=== PATIENT | female | born 1990 | race Caucasian/White ===

== ENCOUNTER → 2018-04-05 | Outpatient (CLI) | payer BC, MEDICAID ==
[~2018-04-05] MED LIST: FERR325T18 PO; Hydrocodone Bit/Acetaminophen PO; IBP600T1 PO; IBUP-1773 PO; LABE200T7 PO; LEVO112T55; LEVO125T6 PO; LVT.05T PO; PREN1TAB39 PO; THYROID
--- NOTE | 2018-04-05 12:09 | Diagnostic Imaging Report ---
INDICATION: survey. TECHNIQUE: Multiple real-time grayscale images were obtained over the gravid uterus. COMPARISON: None. FINDINGS: There is a single live fetus in a cephalic presentation. heart rate was recorded at 158 beats per minute. Cervical length is 3.7 cm. Placenta is anterior. The amniotic fluid volume is normal. survey shows kidneys, bladder and stomach to be unremarkable. brain is unremarkable. There is a four chambered heart. There is a three-vessel cord with normal insertion. spine is somewhat limited in evaluation due to position. Biometrical measurements are as follows: Biparietal 5.18 cm, age 21 weeks 5 days. Head circumference 19.14 cm, age 21 weeks 3 days. Abdominal circumference 16.87 cm, age 22 weeks 0 days. Femur length 3.80 cm, age 22 weeks 2 days. Sonographic estimate age: 21 weeks 6 days. Sonographic estimated date of delivery: 08/10/18. Estimated Weight: 462 gm (+/- 67 gm). LMP percentile: 71%. heart rate: 158 beats per minute. number: 1 of 1. IMPRESSION: Single live IUP approximately 21 weeks 6 days gestational age with estimated date of confinement sonographically of 08/10/2018. survey is unremarkable apart from a limited spine evaluation. Followup can be obtained. Dictated by: Dictated on workstation # [id number]
== END ==
LOC: RAD 09:55
PROVIDERS: ATTEND Obstetrics & Gynecology
DX: Z36.89 Encounter for other specified antenatal screening (principal); Z3A.21 21 weeks gestation of pregnancy
CPT/HCPCS: 76805

== ENCOUNTER → 2018-06-29 | Outpatient (CLI) | payer BC, MEDICAID ==
--- NOTE | 2018-06-29 11:21 | Diagnostic Imaging Report ---
INDICATION: Gestational diabetes. TECHNIQUE: Multiple real-time grayscale images were obtained over the gravid uterus. COMPARISON: 04/05/2018. FINDINGS: There is a single live fetus in a cephalic presentation. heart rate was recorded at 144 beats per minute. Placenta is anterior. Amniotic fluid index is 9.7 cm. Again noted that spine is not well seen today. Biophysical profile was performed. Overall biophysical profile score is normal at 8 out 8. Biometrical measurements are as follows: Biparietal 8.48 cm, age 34 weeks 2 days. Head circumference 30.12 cm, age 33 weeks 3 days. Abdominal circumference 30.52 cm, age 34 weeks 4 days. Femur length 6.39 cm, age 33 weeks 1 days. Sonographic estimate age: 33 weeks 6 days. Sonographic estimated date of delivery: 08/11/2018. Estimated Weight: 2309 gm (+/- 337 gm). LMP percentile: 53%. heart rate: 144 beats per minute. number: 1 of 1. IMPRESSION: Single live IUP approximately 34 weeks gestational age demonstrating normal interval growth when compared with exam from 04/05/2018. Biophysical profile score is 8 out 8. Survey is limited due to later gestation. spine evaluation remains somewhat limited but no gross abnormality is seen. Dictated by: Dictated on workstation # [id number]
== END ==
LOC: RAD 10:24
PROVIDERS: ATTEND Obstetrics & Gynecology
DX: O24.410 Gestational diabetes mellitus in pregnancy, diet controlled (principal); Z3A.34 34 weeks gestation of pregnancy
CPT/HCPCS: 76805; 76819

== ENCOUNTER → 2018-07-13 | Outpatient (CLI) | payer MEDICAID ==
--- NOTE | 2018-07-13 12:18 | Diagnostic Imaging Report ---
INDICATION: Gestational diabetes. TECHNIQUE: Multiple real-time grayscale images were obtained over the gravid uterus. COMPARISON: 06/29/2018. FINDINGS: Joseph gestation receives a normal 8/8 biophysical profile. Its positioning is cephalic. The normal amniotic fluid index is 10.4. The heart rate is 132 beats per minute. The placenta is anterior with no abruption or previa. Measurements today correlate with an age 36 weeks 1 day reflecting normal interval growth from the initial exam. No abnormality at the anatomical survey was revealed. The spine appeared normal. IMPRESSION: 1. Normal 8/8 biophysical profile. Cephalic-positioned joseph viable IUP revealed normal interval growth. 2. Normal sonographic appearance of the spine. Biometrical measurements are as follows: Biparietal 8.80 cm, age 35 weeks 4 days. Head circumference 32.51 cm, age 36 weeks 6 days. Abdominal circumference 32.64 cm, age 36 weeks 4 days. Femur length 6.85 cm, age 35 weeks 2 days. Sonographic estimate age: 36 weeks 1 days. Sonographic estimated date of delivery: 08/09/18. Estimated Weight: 2856 gm (+/- 417 gm). LMP percentile: 65%. heart rate: 132 beats per minute. number: 1 of 1. Dictated by: Dictated on workstation # [id number]
== END ==
LOC: RAD 10:45
PROVIDERS: ATTEND Obstetrics & Gynecology
DX: O24.410 Gestational diabetes mellitus in pregnancy, diet controlled (principal); Z3A.36 36 weeks gestation of pregnancy
CPT/HCPCS: 76805; 76819

== ENCOUNTER → 2018-08-01 | Outpatient (CLI) | payer MEDICAID ==
--- NOTE | 2018-08-01 12:17 | Diagnostic Imaging Report ---
EXAMINATION: biophysical profile score. INDICATION: Gestational diabetes. FINDINGS: The previous biophysical profile score of 07/13/2018 noted a single live fetus in cephalic presentation. The biophysical profile score was 8/8 and within normal limits. On this exam, the fetus is again visualized. The fetus remains in cephalic presentation. heart motion was noted, and a rate of 146 BPM was recorded. The biophysical profile score is still within normal limits at 8/8. The placenta is anterior, and there is no previa. The amniotic fluid index is 8.3 (normal 8-22 cm). IMPRESSION: There is a single live near-term fetus in cephalic presentation. The biophysical profile score is 8/8 and remains within normal limits. Dictated by: Dictated on workstation # [id number]
== END ==
LOC: RAD 09:44
PROVIDERS: ATTEND Obstetrics & Gynecology
DX: O24.410 Gestational diabetes mellitus in pregnancy, diet controlled (principal); Z3A.37 37 weeks gestation of pregnancy
CPT/HCPCS: 76819

== ENCOUNTER 2018-08-03 07:30 | Inpatient (IN) | payer MEDICAID ==
--- NOTE | 2018-08-03 20:05 | NUR ---
DAVIAN SANTIAGO presented to unit via from ED, accompanied by , FOR INDUCTION. DAVIAN SANTIAGO weighed, gowned, voided, and to bed. EFHM and TOCO applied, VS taken. DAVIAN SANTIAGO oriented to bed controls, call light, TV, heat, and A/C controls.
[2018-08-03] MEDS ORDERED: NS IV 1000 ML 1,000 ML ONE (20:09)
[2018-08-03] MEDS: NS IV 1000 ML 1,000 ML IV SCH (20:15)
[2018-08-03 20:35] VITALS: BP 145/79
[2018-08-03] MEDS ORDERED: MINERAL OIL CONCENTRATE 99.9% 15 ML UDC TOP PRN (20:45)
[2018-08-03] MEDS ORDERED: MISOPROSTOL 100 MCG (CYTOTEC) TAB PO ONE (20:45)
[2018-08-03 20:51] LABS: BASOPHILS % (AUTO) 0 % (0-10); EOSINOPHILS % (AUTO) 1 % (0-10); HEMATOCRIT 31 % (35-52); HEMOGLOBIN 10.5 G/DL (11.5-16.0); LYMPHOCYTES # (AUTO) 0.8 X 10^3 (1.0-4.0); LYMPHOCYTES % (AUTO) 13 % (12-44); MEAN CORPUSCULAR HEMOGLOBIN 27 PG (25-34); MEAN CORPUSCULAR HGB CONC 34 G/DL (32-36); MEAN CORPUSCULAR VOLUME 78 FL (80-99); MEAN PLATELET VOLUME 10.8 FL (7.4-10.4); MONOCYTES # (AUTO) 0.6 X 10^3 (0.0-1.0); MONOCYTES % (AUTO) 10 % (0-12); NEUTROPHILS # (AUTO) 4.7 X 10^3 (1.8-7.8); NEUTROPHILS % (AUTO) 77 % (42-75); PLATELET COUNT 145 10^3/uL (130-400); RED CELL DISTRIBUTION WIDTH 16.6 % (10.0-14.5); WHITE BLOOD COUNT 6.1 10^3/uL (4.3-11.0)
[2018-08-03] MEDS: LACTATED RINGERS 1,000 ML IV SCH (20:57)
[2018-08-03] MEDS ORDERED: ZOLPIDEM 5 MG (AMBIEN) TAB PO ONE (21:00)
[2018-08-03] MEDS ORDERED: CATHETER FLUSH 10 ML SYR IV SCH (22:00)
[2018-08-03 22:30] VITALS: BP 142/76
[2018-08-04] VITALS (33 sets, daily range): BP systolic 124–167; BP diastolic 58–86
[2018-08-04] MEDS: MISOPROSTOL 100 MCG (CYTOTEC) TAB PO SCH ×2 (01:10→05:15)
[2018-08-04 02:37] LABS: BILIRUBIN,URINE NEGATIVE (NEGATIVE); CLARITY,URINE CLEAR; COLOR,URINE YELLOW; GLUCOSE, URINE (UA) NEGATIVE (NEGATIVE); KETONES,URINE NEGATIVE (NEGATIVE); LEUKOCYTE ESTERASE ,URINE 2+ (NEGATIVE); NITRITE,URINE NEGATIVE (NEGATIVE); PH,URINE 6.5 (5-9); PROTEIN,URINE NEGATIVE (NEGATIVE); UROBILINOGEN,URINE NORMAL (NORMAL)
[2018-08-04 02:45] LABS: BACTERIA,URINE FEW /HPF
[2018-08-04] MEDS: NS IV 1000 ML 1,000 ML IV SCH ×2 (04:15→11:44)
[2018-08-04] MEDS ORDERED: METF-397 PO (05:49)
[2018-08-04] MEDS ORDERED: SUFENTA 0.6MCG/ML BUPIVA 0.125 100 ML ONE (10:00)
[2018-08-04] MEDS: LACTATED RINGERS 1,000 ML IV SCH (10:01)
[2018-08-04] MEDS ORDERED: BUPIVACAINE 0.25% 30 ML (SENSORCAINE) VIAL ONE (10:37)
[2018-08-04] MEDS ORDERED: LIDOCAINE PF 2% 5 ML (XYLOCAINE) VIAL ONE (10:37)
[2018-08-04] MEDS ORDERED: fentaNYL INJECTION 100 MCG/2 ML AMP ONE (10:37)
[2018-08-04] MEDS ORDERED: LACTATED RINGERS 1,000 ML IV SCH (11:25)
[2018-08-04] MEDS ORDERED: diphenhydrAMINE 50 MG/ML INJ (BENADRYL) IV PRN (11:30)
[2018-08-04] MEDS ORDERED: NALOXONE 0.4 MG/ML 1 ML (NARCAN) VIAL IV PRN (11:30)
[2018-08-04] MEDS ORDERED: EPIDURAL (SUFENTA 0.6MCG/ML BUPIVA 0.125%) 100 ML BAG EPI PRN (11:30)
[2018-08-04] MEDS ORDERED: ONDANSETRON 4 MG/2 ML (SDV) Z0FRAN IV PRN (11:30)
[2018-08-04] MEDS ORDERED: OXYTOCIN/NORMAL SALINE 500 ML IV ONE ×2 (12:18→15:00)
[2018-08-04] MEDS ORDERED: LIDOCAINE/EPI 2% 1:200,00 (XYLOCAINE) 10 ML VIAL ONE (13:52)
[2018-08-04] MEDS: OXYTOCIN/NORMAL SALINE 500 ML IV SCH ×2 (14:30→15:15)
[2018-08-04] MEDS ORDERED: BENZOCAINE/MENTHOL (DERMOPLAST) 56 ML CAN TP PRN (15:15)
[2018-08-04] MEDS ORDERED: WITCH HAZEL(TUCKS) 40 EA JAR TOP PRN (15:15)
[2018-08-04] MEDS ORDERED: MEASLES,MUMPS,RUBELLA 1 EA INJ SQ ONE (15:15)
[2018-08-04] MEDS ORDERED: TETANUS,DIPTH,PERTUSS P/F (BOOSTRIX) 0.5 ML VIAL IM ONE (15:15)
--- NOTE | 2018-08-04 15:20 | OB Labor & Delivery Record ---
Vag Delivery Note Vag Delivery Note Date of Delivery: 08/04/18 Preoperative Diagnosis: Serenity Harvey is a 27 /Para 4/2 , Gestational Age 38 4/7 weeks, gestational hypertension, Gestational diabetes, A2 (Metformin) Postoperative Diagnosis: Same Surgeon: SMITH ACHARYA Agricultural Agent: Leonora Rincon, MS III Anesthesia: epidural Delivery Type: vaginal Findings: Viable male infant, apgars , weight 8#1oz Lacerations: none Intact placenta with 3 vessel cord. No nuchal cord, body cord or shoulder dystocia Estimated Blood Loss: 150 ml Complications: None Condition: Stable Description of Procedure: The patient is a 27 year old female who presented 25 /Para 4/2 , Gestational Age 38 4/7 weeks, gestational hypertension, Gestational diabetes, A2 (Metformin). She was admitted and informed consent was obtained. Her labor course was remarkable for AROM. She progressed to complete dilatation and began to push. She was then set up for delivery. The infant's head was delivered atraumatically in the OA position. The shoulders and remainder of the 's body were then delivered without difficulty. Upon delivery, the head was held below the level of the perineum and the mouth and nares were bulb suctioned. The cord was doubly clamped and cut and the was handed off to the pediatric staff. An intact placenta with 3-vessel cord delivered via Roby and there was found to be minimal bleeding.~ Vigorous fundal massage was performed and the fundus was found to be firm. IV oxytocin was given. Examination of the vagina and perineum revealed no laceration. Following the delivery, sponge, instrument and needle counts were correct. Mom and baby were both in stable condition in the labor suite. Vitals - Labs Vital Signs - I&O Vital Signs Date Time Temp Pulse Resp B/P (MAP) Pulse Ox O2 Delivery O2 Flow Rate FiO2 08/04/18 11:45 80 144/63 (90) 97 08/04/18 11:30 82 141/58 (85) 97 08/04/18 11:21 85 146/68 (94) 97 08/04/18 11:16 83 145/67 (93) 97 08/04/18 11:14 86 145/60 (88) 98 08/04/18 11:13 84 18 154/71 (98) 97 08/04/18 10:45 86 157/78 (104) 99 08/04/18 10:30 89 146/73 (97) 98 08/04/18 09:30 98.4 08/04/18 08:25 80 20 149/75 (99) Room Air 08/04/18 05:15 97.8 86 18 139/64 (89) Room Air 08/04/18 01:40 97.8 78 16 124/63 (83) Room Air 08/03/18 22:30 97.8 74 18 142/76 (98) Room Air 08/03/18 20:35 98.0 82 18 145/79 (101) Room Air Labs Laboratory Tests 08/03/18 20:43: White Blood Count 6.1, Red Blood Count 3.96L, Hemoglobin 10.5L, Hematocrit 31L, Mean Corpuscular Volume 78L, Mean Corpuscular Hemoglobin 27, Mean Corpuscular Hemoglobin Concent 34, Red Cell Distribution Width 16.6H, Platelet Count 145, Mean Platelet Volume 10.8H, Neutrophils (%) (Auto) 77H, Lymphocytes (%) (Auto) 13, Monocytes (%) (Auto) 10, Eosinophils (%) (Auto) 1, Basophils (%) (Auto) 0, Neutrophils # (Auto) 4.7, Lymphocytes # (Auto) 0.8L, Monocytes # (Auto) 0.6, Eosinophils # (Auto) 0.0, Basophils # (Auto) 0.0, Glucose Level 76 08/03/18 22:40: Urine Color YELLOW, Urine Clarity CLEAR, Urine pH 6.5, Urine Specific [place] 1.010L, Urine Protein NEGATIVE, Urine Glucose (UA) NEGATIVE, Urine Ketones NEGATIVE, Urine Nitrite NEGATIVE, Urine Bilirubin NEGATIVE, Urine Urobilinogen NORMAL, Urine Leukocyte Esterase 2+H, Urine RBC (Auto) NEGATIVE, Urine RBC NONE , Urine WBC 2-5, Urine Squamous Epithelial Cells 5-10, Urine Crystals NONE, Urine Bacteria FEWH, Urine Casts NONE, Urine Mucus NEGATIVE, Urine Culture Indicated NO 08/04/18 07:40: Glucometer 87 08/04/18 09:47: Glucometer 92 SMITH ACHARYA DO Aug 04, 2018 15:20
[2018-08-04] MEDS ORDERED: ACET-77 PO (16:07)
[2018-08-04] MEDS ORDERED: IBUP-844 PO (16:07)
--- NOTE | 2018-08-04 16:08 | Discharge Inst-Women's Service ---
Discharge Inst-Women's Serv Depart Medication/Instructions New, Converted or Re-Newed RX: RX on Chart Final Diagnosis gestational hypertension gestational diabetes A2 Vaginal delivery Epidural Consults/Follow Up Additional Follow Up: Yes (6 weeks with Pranay) Activity Activity: Activity as Tolerated Driving Instructions: You May Drive NO SMOKING: NO SMOKING Nothing Inside Vagina: No Douching, No [place] Diet Discharge Diet: No Restrictions Symptoms to Report to : Swelling Increased, Eyesight Changes, Pain Increased , Fever Over 101 Degrees F, Pain/Pressure in Jaw, Vaginal Bleeding Increase, Cramps in Feet or Legs, Vaginal Discharge Foul For Any Problems or Questions: Contact Your Physician SMITH ACHARYA DO Aug 04, 2018 16:08
[2018-08-04] MEDS: IBUPROFEN 600 MG (MOTRIN) TAB PO SCH ×2 (17:46→23:33)
--- NOTE | 2018-08-04 18:30 | NUR ---
Pericare performed, fresh vpad and underwear applied. Pt assisted to bathroom via ambulation. +void without difficulty. Fresh gown applied. Pt ambulates to PP room 309 accompanied by RN and with all personal belongings. Pt oriented to room and call light. Room service and packet explained. Pt denies needs or concerns at this time.
[2018-08-04] MEDS: ACETAMINOPHEN 500 MG TAB (TYLENOL) PO SCH (20:42)
[2018-08-04] MEDS: DOCUSATE SODIUM 100 MG (COLACE) CAP PO SCH (20:44)
--- NOTE | 2018-08-04 21:00 | NUR ---
pt up ambulating around in room. family at bedside. assessment completed. pt denies any needs at this time.
[2018-08-04] MEDS ORDERED: CATHETER FLUSH 10 ML SYR IV SCH (22:00)
[2018-08-05 01:00] VITALS: BP 143/80
[2018-08-05 05:00] VITALS: BP 133/81
[2018-08-05] MEDS: ACETAMINOPHEN 500 MG TAB (TYLENOL) PO SCH ×2 (05:55→13:32)
[2018-08-05] MEDS: IBUPROFEN 600 MG (MOTRIN) TAB PO SCH ×2 (05:56→13:32)
[2018-08-05 06:16] LABS: BASOPHILS % (AUTO) 0 % (0-10); EOSINOPHILS # (AUTO) 0.1 10^3/uL (0.0-0.3); EOSINOPHILS % (AUTO) 1 % (0-10); HEMATOCRIT 26 % (35-52); HEMOGLOBIN 8.6 G/DL (11.5-16.0); LYMPHOCYTES # (AUTO) 0.8 X 10^3 (1.0-4.0); LYMPHOCYTES % (AUTO) 16 % (12-44); MEAN CORPUSCULAR HGB CONC 33 G/DL (32-36); MEAN CORPUSCULAR VOLUME 80 FL (80-99); MEAN PLATELET VOLUME 10.4 FL (7.4-10.4); MONOCYTES # (AUTO) 0.5 X 10^3 (0.0-1.0); MONOCYTES % (AUTO) 10 % (0-12); NEUTROPHILS # (AUTO) 3.5 X 10^3 (1.8-7.8); NEUTROPHILS % (AUTO) 73 % (42-75); PLATELET COUNT 120 10^3/uL (130-400); RED CELL DISTRIBUTION WIDTH 16.5 % (10.0-14.5); WHITE BLOOD COUNT 4.8 10^3/uL (4.3-11.0)
[2018-08-05 06:18] LABS: MEAN CORPUSCULAR HEMOGLOBIN 26 PG (25-34)
[2018-08-05] MEDS ORDERED: PRENATAL VITAMIN 1 EA TAB PO SCH (07:00)
[2018-08-05] MEDS ORDERED: FERROUS SULF 325 MG (IRON) TAB PO SCH (08:00)
[2018-08-05 09:46] VITALS: BP 148/63
--- NOTE | 2018-08-05 09:46 | NUR ---
AM shift assessment completed and vital signs obtained, see interventions. Scheduled PNV, Colace, and Iron PO given. Plan of care reviewed with patient. Patient verbalizes understanding and denies any current questions or concerns at this time. Shower supplies provided.
[2018-08-05] MEDS: DOCUSATE SODIUM 100 MG (COLACE) CAP PO SCH (09:48)
[2018-08-05 13:32] VITALS: BP 142/71
--- NOTE | 2018-08-05 13:32 | NUR ---
Scheduled Motrin and Tylenol PO given. Fresh water provided. Patient denies any current needs or concerns at this time.
--- NOTE | 2018-08-05 15:22 | Anesthesia-Regional Post-Op ---
Regional Patient Condition Mental Status: Alert, Oriented x3 Circulation: Same as Pre-Op Headache: Absent Sensation: Full Recovery Motor Block: Absent Post Op Complications Complications None Follow Up Care/Instructions Patient Instructions None needed. Anesthesia/Patient Condition Patient is doing well, no complaints, stable vital signs, no apparent adverse anesthesia problems. No complications reported per nursing. WING ALLEN CRNA Aug 05, 2018 15:22
--- NOTE | 2018-08-05 18:00 | NUR ---
Patient discharged at this time and ambulated down to awaiting private vehicle accompanied by this RN. No signs or symptoms of distress noted.
== END 2018-08-05 18:00 | disposition home or self-care (01) | DRG 807 ==
LOC: LDRP 20:09
PROVIDERS: ADMIT Obstetrics & Gynecology; ATTEND Obstetrics & Gynecology
PROC: 10E0XZZ Delivery of Products of Conception, External Approach (ICD-10-PCS; principal; 2018-08-04)
DX: O13.4 Gestational [pregnancy-induced] hypertension without significant proteinuria, complicating childbirth (principal); O24.425 Gestational diabetes mellitus in childbirth, controlled by oral hypoglycemic drugs; Z79.84 Long term (current) use of oral hypoglycemic drugs; Z37.0 Single live birth; Z3A.38 38 weeks gestation of pregnancy
CPT/HCPCS: 36415; 81000; 82947; 82962; 85025; 86850; 86900; 86901; 87088

== ENCOUNTER 2021-07-21 13:12 | Outpatient (RCR) | payer MEDICAID ==
[2021-07-14] MEDS: FERRIC CARBOXYMALTOSE INJ 750 MG in NS (IVPB) 250 ML IV SCH (13:30)
[2021-07-14 13:48] VITALS: BP 142/82
[~2021-07-21] VITALS: Ht 172 cm; Wt 110.0 kg
[~2021-07-21 13:12] MED LIST changes: +ACET-78 PO; +IBUP-844 PO; +METF-397 PO
[2021-07-21] MEDS: FERRIC CARBOXYMALTOSE INJ 750 MG in NS (IVPB) 250 ML IV SCH (13:49)
[2021-07-21 14:12] VITALS: BP 144/69
== END 2021-08-10 | disposition home or self-care (01) ==
LOC: SDC 13:12
PROVIDERS: ATTEND Obstetrics & Gynecology
DX: D50.9 Iron deficiency anemia, unspecified (principal)
CPT/HCPCS: 96365

== ENCOUNTER → 2021-09-11 | Outpatient (CLI) | payer MEDICAID ==
--- NOTE | 2021-09-11 16:57 | Diagnostic Imaging Report ---
INDICATION: survey. TECHNIQUE: Multiple real-time grayscale images were obtained over the gravid uterus. COMPARISON: None FINDINGS: There is a single live fetus in a variable presentation. heart rate was recorded at 146 BPM. Placenta is anterior. Amniotic fluid volume is normal. Cervical length is 6.3 cm. kidneys and bladder are unremarkable. There is a three-vessel cord with normal insertion. spine is unremarkable. The stomach, brain, and heart anatomy is limited due to position and movement. Biometrical measurements are as follows: Biparietal 4.42 cm, age 19 weeks 3 days. Head circumference 16.81 cm, age 19 weeks 4 days. Abdominal circumference 16.26 cm, age 21 weeks 3 days. Femur length 3.74 cm, age 22 weeks 0 days. Sonographic estimate age: 20 weeks 5 days. Sonographic estimated date of delivery: 01/24/2022. Estimated Weight: 414 gm (+/- 61 gm). LMP percentile: >98%. heart rate: 146 beats per minute. number: 1 of 1. IMPRESSION: Single live IUP of 20 weeks 5 days gestational age. Estimated date of confinement sonographically is 01/24/2022. survey is somewhat limited due to position. No gross abnormality is seen. Dictated by: Dictated on workstation # [id number]
== END ==
LOC: RAD 12:00
PROVIDERS: ATTEND Obstetrics & Gynecology
DX: Z36.89 Encounter for other specified antenatal screening (principal); Z3A.20 20 weeks gestation of pregnancy
CPT/HCPCS: 76805

== ENCOUNTER → 2021-09-29 | Outpatient (CLI) | payer MEDICAID ==
[2021-09-29 15:49] LABS: BASOPHILS % (AUTO) 0 % (0-10); EOSINOPHILS # (AUTO) 0.1 10^3/uL (0.0-0.3); EOSINOPHILS % (AUTO) 1 % (0-10); HEMATOCRIT 32 % (35-52); LYMPHOCYTES # (AUTO) 0.9 X 10^3 (1.0-4.0); LYMPHOCYTES % (AUTO) 15 % (12-44); MEAN CORPUSCULAR HEMOGLOBIN 28 pg (25-34); MEAN CORPUSCULAR HGB CONC 34 g/dL (32-36); MEAN CORPUSCULAR VOLUME 81 fL (80-99); MEAN PLATELET VOLUME 10.2 fL (9.0-12.2); MONOCYTES # (AUTO) 0.3 X 10^3 (0.0-1.0); MONOCYTES % (AUTO) 5 % (0-12); NEUTROPHILS # (AUTO) 4.5 X 10^3 (1.8-7.8); NEUTROPHILS % (AUTO) 78 % (42-75); PLATELET COUNT 142 10^3/uL (130-400); WHITE BLOOD COUNT 5.8 10^3/uL (4.3-11.0)
== END ==
LOC: LABNPT 15:37
PROVIDERS: ATTEND Nurse Practitioner Women's Health
DX: Z34.02 Encounter for supervision of normal first pregnancy, second trimester (principal); Z36.9 Encounter for antenatal screening, unspecified
CPT/HCPCS: 82950; 85025

== ENCOUNTER → 2021-12-10 | Outpatient (CLI) | payer MEDICAID ==
--- NOTE | 2021-12-10 15:58 | Diagnostic Imaging Report ---
INDICATION: Evaluate growth. TECHNIQUE: Multiple real-time grayscale images were obtained over the gravid uterus. COMPARISON: 09/11/2021. FINDINGS: There is a single live fetus in a breech presentation. heart rate was recorded at 161 BPM. Placenta is posterior and fundal. Amniotic fluid volume is normal. Cervical length is 5.7 cm. stomach, brain, and four-chamber heart views were visualized on today's exam. Biometrical measurements are as follows: Biparietal 8.14 cm, age 32 weeks 5 days. Head circumference 31.84 cm, age 35 weeks 6 days. Abdominal circumference 29.17 cm, age 33 weeks 2 days. Femur length 6.00 cm, age 31 weeks 2 days. Sonographic estimate age: 33 weeks 2 days. Sonographic estimated date of delivery: 01/26/2022. Estimated Weight: 2058 gm (+/- 301 gm). LMP percentile: 43%. heart rate: 161 beats per minute. number: 1 of 1. IMPRESSION: Single live IUP of approximately 33 weeks gestational age showing normal interval growth when compared with prior exam. No complicating features are detected. Dictated by: Dictated on workstation # [id number]
== END ==
LOC: RAD 15:15
PROVIDERS: ATTEND Obstetrics & Gynecology
DX: O36.63X0 Maternal care for excessive fetal growth, third trimester, not applicable or unspecified (principal); Z3A.33 33 weeks gestation of pregnancy
CPT/HCPCS: 76805

== ENCOUNTER → 2022-01-20 | Outpatient (CLI) | payer MEDICAID ==
[2022-01-20 12:48] LABS: URINE CREATININE FOR RATIO 24 MG/DL (30-125); URINE PROTEIN FOR RATIO ONLY < 6 MG/DL (6-12)
== END ==
LOC: LABNPT 11:36
PROVIDERS: ATTEND Nurse Practitioner Women's Health
DX: O13.9 Gestational [pregnancy-induced] hypertension without significant proteinuria, unspecified trimester (principal); Z3A.00 Weeks of gestation of pregnancy not specified
CPT/HCPCS: 82570; 84156

== ENCOUNTER 2022-01-27 12:26 | Inpatient (IN) | payer MEDICAID ==
[~2022-01-27] VITALS: Ht 172.7 cm; Wt 130.0 kg
[2022-01-27] VITALS (69 sets, daily range): BP systolic 117–153; BP diastolic 58–86
[2022-01-27] MEDS ORDERED: OXYTOCIN PRE-MIX DRIP 500 ML IV SCH ×2 (12:45→19:30)
[2022-01-27] MEDS ORDERED: MINERAL OIL 30 ML UDC TOP PRN (12:45)
[2022-01-27 13:15] LABS: BASOPHILS % (AUTO) 0 % (0-10); EOSINOPHILS % (AUTO) 1 % (0-10); HEMATOCRIT 32 % (35-52); HEMOGLOBIN 10.9 g/dL (11.5-16.0); LYMPHOCYTES # (AUTO) 0.7 10^3/uL (1.0-4.0); LYMPHOCYTES % (AUTO) 12 % (12-44); MEAN CORPUSCULAR HEMOGLOBIN 27 pg (25-34); MEAN CORPUSCULAR HGB CONC 34 g/dL (32-36); MEAN CORPUSCULAR VOLUME 80 fL (80-99); MEAN PLATELET VOLUME 11.1 fL (9.0-12.2); MONOCYTES # (AUTO) 0.3 10^3/uL (0.0-1.0); MONOCYTES % (AUTO) 7 % (0-12); NEUTROPHILS # (AUTO) 4.2 10^3/uL (1.8-7.8); NEUTROPHILS % (AUTO) 80 % (42-75); PLATELET COUNT 148 10^3/uL (130-400); WHITE BLOOD COUNT 5.3 10^3/uL (4.3-11.0)
[2022-01-27 13:24] LABS: ALBUMIN 3.1 GM/DL (3.2-4.5); POTASSIUM 3.8 MMOL/L (3.6-5.0)
[2022-01-27 13:26] LABS: CALCIUM 8.6 MG/DL (8.5-10.1)
[2022-01-27 13:27] LABS: TOTAL PROTEIN 6.1 GM/DL (6.4-8.2)
[2022-01-27 13:29] LABS: BILIRUBIN,TOTAL 0.5 MG/DL (0.1-1.0)
[2022-01-27 13:31] LABS: CREATININE SERUM 0.59 MG/DL (0.60-1.30)
[2022-01-27] MEDS: D5 LR IV SOLUTION 1,000 ML IV SCH ×2 (13:34→18:45)
[2022-01-27] MEDS ORDERED: LEVO112T55 PO (13:36)
[2022-01-27] MEDS ORDERED: CATHETER FLUSH 10 ML SYR IV SCH ×2 (14:00→22:00)
[2022-01-27] MEDS ORDERED: BENZOCAINE/MENTHOL (DERMOPLAST) 56 ML CAN TP PRN (19:30)
[2022-01-27] MEDS ORDERED: NALOXONE 0.4 MG/ML 1 ML (NARCAN) VIAL IV PRN ×4 (19:30→23:00)
[2022-01-27] MEDS ORDERED: WITCH HAZEL(TUCKS) 40 EA JAR TOP PRN (19:30)
[2022-01-27] MEDS ORDERED: MEASLES,MUMPS,RUBELLA 1 EA INJ SQ ONE (19:30)
[2022-01-27] MEDS ORDERED: TETANUS,DIPTH,PERTUSS P/F (BOOSTRIX) 0.5 ML VIAL IM ONE (19:30)
[2022-01-27] MEDS ORDERED: BUTORPHANOL INJ 2 MG/ML (STADOL) VIAL IV PRN (20:30)
[2022-01-27] MEDS ORDERED: LACTATED RINGERS 1,000 ML IV ONE ×2 (21:56→22:00)
[2022-01-27] MEDS ORDERED: CATHETER FLUSH 10 ML SYR IV PRN (22:00)
[2022-01-27] MEDS ORDERED: fentaNYL 2 mcg/ml BUPIVA 0.125 100 ML IV SCH (22:00)
[2022-01-27] MEDS ORDERED: ONDANSETRON 4 MG/2 ML (SDV) Z0FRAN IV PRN (23:00)
[2022-01-27] MEDS ORDERED: LACTATED RINGERS 1,000 ML IV SCH (23:00)
[2022-01-27] MEDS ORDERED: diphenhydrAMINE 50 MG/ML INJ (BENADRYL) IV PRN (23:00)
[2022-01-27] MEDS ORDERED: fentaNYL 2 mcg/ml BUPIVA 0.125 100 ML EPI SCH (23:00)
[2022-01-27] MEDS ORDERED: METOCLOPRAMIDE INJ 10 MG/2 ML (REGLAN) IV PRN (23:00)
[2022-01-28] VITALS (49 sets, daily range): BP systolic 115–152; BP diastolic 55–78
[2022-01-28] MEDS: D5 LR IV SOLUTION 1,000 ML IV SCH (02:44)
--- NOTE | 2022-01-28 02:46 | HISTORY AND PHYSICAL ---
DATE OF SERVICE: CHIEF COMPLAINT: Elevated blood pressures. HISTORY OF PRESENT ILLNESS: This is a 5, para 4 at 39 weeks and 4 days gestation, who was admitted from the office for gestational hypertension. Denies headache, blurry vision, right upper quadrant pain. Denies contractions, leaking of fluid or vaginal bleeding. Positive movement. No other complaints of. PAST OBSTETRICAL HISTORY: Spontaneous vaginal delivery x4 at term with history of complications of hypertensive disorders in . PAST MEDICAL HISTORY: Hypothyroidism, transient thrombocytopenia, gestational. PAST SURGICAL HISTORY: Appendectomy, cholecystectomy. MEDICATIONS: Levothyroxine 112 mcg p.o. daily and vitamins and iron supplements. FAMILY HISTORY: Briefly reviewed and noncontributory. SOCIAL HISTORY: Denies tobacco, alcohol or drug use. REVIEW OF SYSTEMS: Negative other than per HPI. PHYSICAL EXAMINATION: GENERAL: Alert and oriented x3, in no acute distress, resting comfortably in the bed. HEENT: Normocephalic, atraumatic. CHEST: Nonlabored. ABDOMEN: Gravid, nontender. EXTREMITIES: Nontender. PELVIC: Cervical exam is 3 cm, 60% effaced, -3, vertex confirmed by bedside ____sono_. heart tones are category 1. [place] have contractions following initiation of Pitocin. VITAL SIGNS: Blood pressure ranged from normal to mild with no severe blood pressures with her vital signs were stable. She is afebrile. LABORATORY DATA: CBC and CMP, LDH, uric acid are unremarkable for preeclampsia and UA has negative protein. ASSESSMENT: A 31-year-old G5, P4 at 39 weeks and 4 days gestation with gestational hypertension. PLAN: Admit for induction of labor. Pitocin initiated. AROM performed 3 cm with clear fluid. Job ID: [id number] DocumentID: [id number] Dictated Date: 01/27/2022 20:30:37 Spectrographer Date: 01/28/2022 02:46:20 Dictated By: Olya Sesay MD [facility]
--- NOTE | 2022-01-28 06:03 | OPERATIVE REPORT ---
DATE OF SERVICE: 01/28/2022 PREOPERATIVE DIAGOSIS: G5, P4 at 39 weeks and 5 days gestation with gestational hypertension. DIAGNOSIS: Delivered a female, Apgars 8 and 9. DELIVERY TYPE: Spontaneous vaginal delivery. DELIVERING PHYSICIAN: Olya Sesay MD ANESTHESIA: Epidural. ESTIMATED BLOOD LOSS: 250 mL. COMPLICATIONS: None. CONDITION: Stable. GBS negative. DELIVERY NOTE: The patient was admitted from the clinic with elevated blood pressures in the mild range. Lab evaluation was unremarkable and she was asymptomatic consistent with gestational hypertension. She had an isolated severe blood pressure with pushing otherwise, normal to mild range blood pressures. She was admitted and had Pitocin induction followed by artificial rupture of membranes with ___[place]ook__ at 3 cm revealing clear fluid. She had epidural placed on her request; however, was not adequate and had a replaced and was able to achieve adequate pain control. She progressed to stage II and pushed through a single contraction, delivering a female infant in the REED position. Nose and mouth were suctioned and the was placed on mom's abdomen for delayed cord clamping. A cord segment was obtained and held. Cord blood was drawn and the placenta was expressed. Evaluation of the placenta revealed this to be intact without any visual gross abnormalities. Uterine tone was achieved with Pitocin after delivery of the . Periurethral laceration was repaired with 3-0 chromic suture. Mom and baby tolerated the delivery well. Job ID: [id number] DocumentID: [id number] Dictated Date: 01/28/2022 04:49:19 Ibm Bpm Developer Date: 01/28/2022 06:02:09 Dictated By: Olya Sesay MD [facility]
[2022-01-28] MEDS ORDERED: IBUP-844 PO (07:34)
[2022-01-28] MEDS ORDERED: OXC5T PO (07:34)
[2022-01-28] MEDS: DOCUSATE SODIUM 100 MG (COLACE) CAP PO SCH ×3 (09:00→21:05)
--- NOTE | 2022-01-28 10:30 | Anesthesia-Regional Post-Op ---
Regional Patient Condition Mental Status: Alert, Oriented x3 Circulation: Same as Pre-Op Headache: Absent Sensation: Full Recovery Motor Block: Absent Post Op Complications Complications None Follow Up Care/Instructions Patient Instructions None needed. Anesthesia/Patient Condition Patient is doing well, no complaints, stable vital signs, no apparent adverse anesthesia problems. No complications reported per nursing. MITCHEL SEGURA CRNA Jan 28, 2022 10:30
[2022-01-28] MEDS: FERROUS SULF 325 MG (IRON) TAB PO SCH (10:32)
[2022-01-28] MEDS: PRENATAL VITAMIN 1 EA TAB PO SCH (10:34)
[2022-01-28] MEDS: IBUPROFEN 600 MG (MOTRIN) TAB PO SCH ×3 (10:36→22:00)
[2022-01-28] MEDS: ACETAMINOPHEN 500 MG TAB (TYLENOL) PO SCH ×3 (10:36→21:59)
[2022-01-28] MEDS ORDERED: OXYTOCIN PRE-MIX DRIP 500 ML IV SCH ×2 (11:00→15:45)
[2022-01-28 12:07] LABS: BASOPHILS % (AUTO) 0 % (0-10); EOSINOPHILS % (AUTO) 0 % (0-10); HEMATOCRIT 30 % (35-52); HEMOGLOBIN 10.2 g/dL (11.5-16.0); LYMPHOCYTES # (AUTO) 0.7 10^3/uL (1.0-4.0); LYMPHOCYTES % (AUTO) 9 % (12-44); MEAN CORPUSCULAR HEMOGLOBIN 27 pg (25-34); MEAN CORPUSCULAR HGB CONC 34 g/dL (32-36); MEAN CORPUSCULAR VOLUME 80 fL (80-99); MEAN PLATELET VOLUME 10.8 fL (9.0-12.2); MONOCYTES # (AUTO) 0.6 10^3/uL (0.0-1.0); MONOCYTES % (AUTO) 7 % (0-12); NEUTROPHILS # (AUTO) 6.8 10^3/uL (1.8-7.8); NEUTROPHILS % (AUTO) 83 % (42-75); PLATELET COUNT 141 10^3/uL (130-400); WHITE BLOOD COUNT 8.2 10^3/uL (4.3-11.0)
[2022-01-28 12:19] LABS: PROTHROMBIN TIME PATIENT 13.6 SEC (12.2-14.7)
[2022-01-28 12:26] LABS: ALBUMIN 2.8 GM/DL (3.2-4.5); BILIRUBIN,TOTAL 0.4 MG/DL (0.1-1.0); CALCIUM 8.7 MG/DL (8.5-10.1); CREATININE SERUM 0.58 MG/DL (0.60-1.30); POTASSIUM 4.2 MMOL/L (3.6-5.0); TOTAL PROTEIN 5.5 GM/DL (6.4-8.2)
[2022-01-28] MEDS ORDERED: morphine INJ 4 MG/ML 1 ML (VIAL/SYRINGE) ONE (15:20)
[2022-01-28] MEDS ORDERED: morphine INJ 10 MG/ML 1ML (SYR OR VIAL) IVP STA (15:23)
[2022-01-28] MEDS ORDERED: METHYLERGONOVINE 0.2 MG (MEHTERGINE) TAB PO ONE (15:28)
[2022-01-28] MEDS ORDERED: METHYLERGONOVINE 0.2 MG/ML (METHERGINE) AMP IM NR (15:45)
[2022-01-28] MEDS ORDERED: NS IV 500 ML 500 ML IV SCH (15:45)
[2022-01-28] MEDS ORDERED: LACTATED RINGERS 1,000 ML IV SCH (15:45)
[2022-01-28] MEDS ORDERED: IRON SUCROSE 200 MG/10 ML (VENOFER) VIAL IV SCH (16:00)
[2022-01-28] MEDS ORDERED: CARBOPROST (HEMABATE) 250 MCG/ML AMP IM NR (17:00)
[2022-01-28 18:34] LABS: HEMOGLOBIN 9.4 g/dL (11.5-16.0)
[2022-01-29 00:15] VITALS: BP 115/56
--- NOTE | 2022-01-29 02:43 | CONSULTATION REPORT ---
DATE OF SERVICE: 01/28/2022 PROGRESS NOTE This is a delayed entry from 1600 today. I was called by the RN caring for the patient who reported an increase in vaginal bleeding. Uterus is firm per her report, however, has had two episodes of slightly increased lochia today with clots, totaling 700 mL from delivery until time of evaluation. On evaluation, the patient is resting comfortably in the bed, in no acute distress. Denies pain, but states feels some heaviness when she is ambulating. Voiding without difficulty and feels as emptying her bladder completely with what she reports is quite a bit of urine output. No fevers or chills. On exam, her fundus is well above the umbilicus, unable to massage any clots out, however, this is likely secondary to her habitus. Consent was obtained and she was administered 2 mg of IV morphine and was performed revealing a uterus distended full of clot and was able to evacuate 2 pieces of placental membranes, but no cotyledons were noted. Tone was slow to achieve and she was given another bag of Pitocin. She had one additional bag of Pitocin since delivery with the increase of bleeding noted by the nurse earlier today. Following evacuation of the clots with uterine massage and Pitocin, she was also given oral Methergine as IM was not available and 1000 mcg of Cytotec AR. Blood pressures have been all normal since delivery and had only a few elevated during labor, so Methergine was felt to be an acceptable option. Fibrinogen and INR were normal with a hemoglobin of 10.2 earlier. We will repeat H and H and have 2 units hold. N.p.o. status in case needs surgical management later tonight. Counseled the patient on risks and benefits of above possible procedures and questions were answered to her satisfaction. I will be checking this patient out to Dr. Sharpe overnight. Job ID: [id number] DocumentID: [id number] Dictated Date: 01/28/2022 18:06:53 Remedy Developer Date: 01/29/2022 02:00:29 Dictated By: Olya Sesay MD
[2022-01-29] MEDS: IBUPROFEN 600 MG (MOTRIN) TAB PO SCH ×2 (04:15→10:59)
[2022-01-29] MEDS: ACETAMINOPHEN 500 MG TAB (TYLENOL) PO SCH ×2 (04:16→10:59)
[2022-01-29 04:23] VITALS: BP 127/58
[2022-01-29 09:00] VITALS: BP 131/60
[2022-01-29] MEDS: PRENATAL VITAMIN 1 EA TAB PO SCH (09:07)
[2022-01-29] MEDS: FERROUS SULF 325 MG (IRON) TAB PO SCH (09:07)
[2022-01-29] MEDS: DOCUSATE SODIUM 100 MG (COLACE) CAP PO SCH (09:09)
--- NOTE | 2022-01-29 10:58 | CONSULTATION REPORT ---
DATE OF SERVICE: 01/29/2022 PROGRESS NOTE SUBJECTIVE: The patient states pain is well controlled, tolerating by mouth. Lochia is reduced. States that sensation of something heavy inside has resolved. Denies chest pain, shortness of air. Denies dizziness. No other complaints. OBJECTIVE: VITAL SIGNS: Stable. She is afebrile. GENERAL: Alert and oriented x3, no acute distress, resting comfortably in the bed. CHEST: Nonlabored. ABDOMEN: Appropriately tender following extensive fundal massage yesterday. Fundus is difficult to palpate secondary to habitus, but appears to be firm and below anatomic umbilical location. EXTREMITIES: Nontender. LABORATORY DATA: Hemoglobin last night was 9.4, this morning will be ordered and is pending. IMPRESSION: 1. Status post spontaneous vaginal delivery, day #1 with hemorrhage and acute blood loss anemia. Plan has had adequate IV fluid replacement to maintain volume. Hemoglobin pending this morning. 2. Had initially ordered IV iron; however, the patient reported to the RN following that order that she had hives and swelling following. We will inquire today if she had a reaction to IV iron dextrose or IV iron sucrose the latter of which would have a lower likelihood of side effect and then consider . Definitely, we will continue oral replacement with vitamin C upon dismissal. 3. The patient is hopeful for dismissal today. Reviewed with her the risks of hemorrhage including dizziness, fatigue, lightheadedness and return of hemorrhaging and patient feels that she would have adequate adult support at home for herself and her children and the ability to return to the hospital quickly if anything were to change. We will continue to monitor through today and consider dismissal later this afternoon or evening. Job ID: [id number] DocumentID: [id number] Dictated Date: 01/29/2022 09:10:13 Shared Services Manager Date: 01/29/2022 10:57:35 Dictated By: Olya Sesay MD
[2022-01-29 12:39] LABS: HEMOGLOBIN 8.8 g/dL (11.5-16.0)
[2022-01-29 15:30] VITALS: BP 127/63
[2022-01-29 16:25] VITALS: BP 127/63
== END 2022-01-29 16:25 | disposition home or self-care (01) | DRG 806 ==
LOC: LDRP 12:26
PROVIDERS: ADMIT Obstetrics & Gynecology; ATTEND Obstetrics & Gynecology
PROC: 10E0XZZ Delivery of Products of Conception, External Approach (ICD-10-PCS; principal; 2022-01-28)
PROC: 10907ZC Drainage of Amniotic Fluid, Therapeutic from Products of Conception, Via Natural or Artificial Opening (ICD-10-PCS; 2022-01-28)
PROC: 3E033VJ Introduction of Other Hormone into Peripheral Vein, Percutaneous Approach (ICD-10-PCS; 2022-01-28)
DX: O13.4 Gestational [pregnancy-induced] hypertension without significant proteinuria, complicating childbirth (principal); O99.12 Other diseases of the blood and blood-forming organs and certain disorders involving the immune mechanism complicating childbirth; Z37.0 Single live birth; D62 Acute posthemorrhagic anemia; Z3A.39 39 weeks gestation of pregnancy; O99.284 Endocrine, nutritional and metabolic diseases complicating childbirth; E03.9 Hypothyroidism, unspecified; D69.6 Thrombocytopenia, unspecified; O90.81 Anemia of the puerperium
CPT/HCPCS: 36415; 80053; 83615; 84550; 85014; 85018; 85025; 85384; 85610; 86850; 86900; 86901; 86920

== ENCOUNTER 2022-04-01 05:40 | Outpatient (CLI) | payer MEDICAID ==
[~2022-04-01] VITALS: Ht 172.7 cm; Wt 119.5 kg
[~2022-04-01 05:40] MED LIST changes: +LABE200T10 PO; -LABE200T7 PO; +LEVO112T55 PO; +OXC5T PO
== END 2022-04-01 11:02 | disposition home or self-care (01) ==
LOC: PREOP 05:40
PROVIDERS: ATTEND Obstetrics & Gynecology
DX: Z01.818 Encounter for other preprocedural examination (principal)

== ENCOUNTER 2022-04-05 08:51 | Day surgery (SDC) | payer MEDICAID ==
[2022-04-05] VITALS (11 sets, daily range): BP systolic 111–142; BP diastolic 56–83
[~2022-04-05] VITALS: Ht 172 cm; Wt 119.5 kg
[2022-04-05] MEDS: LACTATED RINGERS 1,000 ML IV PRN ×2 (09:15→12:20)
[2022-04-05 09:47] LABS: BASOPHILS % (AUTO) 0 % (0-10); EOSINOPHILS # (AUTO) 0.1 10^3/uL (0.0-0.3); EOSINOPHILS % (AUTO) 2 % (0-10); HEMATOCRIT 33 % (35-52); HEMOGLOBIN 10.7 g/dL (11.5-16.0); LYMPHOCYTES # (AUTO) 0.7 10^3/uL (1.0-4.0); LYMPHOCYTES % (AUTO) 15 % (12-44); MEAN CORPUSCULAR HEMOGLOBIN 24 pg (25-34); MEAN CORPUSCULAR HGB CONC 32 g/dL (32-36); MEAN CORPUSCULAR VOLUME 74 fL (80-99); MEAN PLATELET VOLUME 10.8 fL (9.0-12.2); MONOCYTES # (AUTO) 0.4 10^3/uL (0.0-1.0); MONOCYTES % (AUTO) 8 % (0-12); NEUTROPHILS # (AUTO) 3.3 10^3/uL (1.8-7.8); NEUTROPHILS % (AUTO) 75 % (42-75); PLATELET COUNT 172 10^3/uL (130-400); WHITE BLOOD COUNT 4.5 10^3/uL (4.3-11.0)
[2022-04-05] MEDS ORDERED: fentaNYL INJ 100 MCG/2 ML AMP ONE (11:02)
[2022-04-05] MEDS ORDERED: MIDAZOLAM 2 MG/2 ML (VERSED) VIAL ONE (11:02)
[2022-04-05] MEDS ORDERED: LIDOCAINE PF 2% 5 ML (XYLOCAINE) VIAL ONE (11:02)
[2022-04-05] MEDS ORDERED: proPOfol 200 MG/20 ML (DIPRIVAN) VIAL IV ONE (11:02)
--- NOTE | 2022-04-05 11:03 | Discharge Inst-Women's Service ---
Discharge Inst-Women's Serv Depart Medication/Instructions New, Converted or Re-Newed RX: Other (may take OTC NSAIDs and tylenol as needed.) Problems Reviewed?: Yes Consults/Follow Up Additional Follow Up: Yes Orders/Referrals Dr. Palm in 2 weeks Activity Activity: Activity as Tolerated Driving Instructions: You May Drive NO SMOKING: NO SMOKING Nothing Inside Vagina: No Douching, No [place], No Tampons Diet Discharge Diet: No Restrictions Symptoms to Report to : Bleeding Excessive, Pain Increased, Fever Over 101 Degrees F, Vaginal Bleeding Increase, Questions/Concerns For Any Problems or Questions: Contact Your Physician SHANTANU PALM DO Apr 05, 2022 11:03
[2022-04-05] MEDS ORDERED: ONDANSETRON 4 MG/2 ML (SDV) Z0FRAN ONE (11:04)
[2022-04-05] MEDS ORDERED: D5 LR IV SOLUTION 1,000 ML IV SCH (11:15)
[2022-04-05] MEDS ORDERED: HYDROcodone/APAP 5 MG/325 MG (LORTAB) TAB PO PRN (11:15)
[2022-04-05] MEDS ORDERED: ONDANSETRON 4 MG/2 ML (SDV) Z0FRAN IVP PRN ×2 (11:15→12:45)
[2022-04-05] MEDS ORDERED: KETOROLAC 30 MG/ML VIAL IVP ONE (11:15)
[2022-04-05] MEDS ORDERED: LIDOCAINE/EPI 1%-1:100,000 (XYLOCAINE) 10 ML ONE (11:26)
[2022-04-05] MEDS ORDERED: KETOROLAC 30 MG/ML VIAL ONE (12:22)
[2022-04-05] MEDS ORDERED: SEVOFLURANE (ULTANE) 15 ML INHAL SOLN ONE (12:23)
[2022-04-05] MEDS ORDERED: morphine INJ 10 MG/ML 1ML (SYR OR VIAL) IVP ONE (12:45)
[2022-04-05] MEDS ORDERED: HYDROmorphone 2 MG/ML VIAL (DILAUDID) IV ONE (12:45)
[2022-04-05] MEDS ORDERED: PROMETHAZINE INJ 25 MG/ML (PHENERGAN) AMP IVP ONE (12:45)
--- NOTE | 2022-04-05 22:33 | OPERATIVE REPORT ---
DATE OF SERVICE: PREOPERATIVE DIAGNOSIS: A 31-year-old female with endocervical high-grade dysplasia. 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 PROCEDURE: Cold knife conization. SURGEON: Gerardo Sharpe DO ANESTHESIA: LMA general. ESTIMATED BLOOD LOSS: Minimal. URINE OUTPUT: 50 mL drained at start of procedure. FLUIDS: 800 mL lactated Ringer's solution. FINDINGS: Grossly normal-appearing external female genitalia, grossly normal-appearing cervix. SPECIMEN SENT: Conization biopsy of the cervix. INDICATIONS FOR PROCEDURE: This 22-year-old female is a patient who had sought care in my office for abnormal Pap smear. Colposcopy findings showed a positive endocervical finding of high-grade dysplasia. I discussed with the patient need for conization biopsy. I discussed with the patient reasoning for cold knife conization with lack of destruction of the margins versus a LEEP cauterization in the office. She was agreeable to proceed with conization biopsy under anesthesia. Risks of procedure were discussed with the patient in detail. After all of her questions were answered, consent was obtained in the preoperative area, the patient was taken to the operating room. OPERATIVE REPORT IN DETAIL: Once in the operating room, anesthesia was found to be adequate, placed in dorsal lithotomy position, prepped and draped in normal sterile fashion. A weighted speculum was inserted into the patient's vagina. Right angle retractor was used to visualize the cervix, which was grasped at 12 o'clock position using a long single tooth tenaculum. I then prepped the cervix using Lugol solution to perform a paracervical block at 3 and 9 o'clock positions on the cervix. Care was taken to aspirate for injecting 5 mL of 0.25% Marcaine injected into each site. I then injected the uterine and cervical stroma visualized using 2% lidocaine with epinephrine; lateral 3 and 9 o'clock sutures were then placed to ensure hemostasis during the biopsy. I then performed a conization biopsy using a knife. Care was taken to sample deep within the endocervical opening. This is not a very lateral biopsy due to the transformation zone not extending laterally and then being negative transformation zone biopsies on colposcopy, after which the vascular bed is cauterized using a ball cautery. I then performed 4 different Sturvtorf stitches to control postoperative hemostasis and then covered the cervix using Astra-Kicking Machine Operator solution, the Sturmdorf stitches or 2-0 Vicryl suture, after which there was no active bleeding noted from the biopsy plane. All instruments were removed from the patient's vagina. The patient tolerated the procedure well and sent to recovery area in stable condition. Lap and sponge counts were correct at the end of the procedure. Instrument counts correct as well. Job ID: [id number] DocumentID: [id number] Dictated Date: 04/05/2022 11:52:43 Director Of Career Services Date: 04/05/2022 22:33:13 Dictated By: DO JACQUELINE POE
--- NOTE | 2022-04-09 14:28 | Anesthesia-General Post-Op ---
General Significant Intra-Op Events Notes late entry: 04/05/22@1330 Patient Condition Mental Status/LOC: Same as Preop Cardiovascular: Satisfactory Nausea/Vomiting: Absent Respiratory: Satisfactory Pain: Controlled Complications: Absent Post Op Complications Complications None Follow Up Care/Instructions Patient Instructions None needed. Anesthesia/Patient Condition Patient Condition Patient is doing well, no complaints, stable vital signs, no apparent adverse anesthesia problems. No complications reported per nursing. WING ALLEN CRNA Apr 09, 2022 14:28
== END 2022-04-05 14:25 | disposition home or self-care (01) ==
LOC: SDC 08:51
PROVIDERS: ATTEND Obstetrics & Gynecology
DX: N87.1 Moderate cervical dysplasia (principal); E66.01 Morbid (severe) obesity due to excess calories; Z68.41 Body mass index [BMI] 40.0-44.9, adult; Z28.310 Unvaccinated for COVID-19
CPT/HCPCS: 36415; 84703; 85025; 86850; 86900; 86901; 87081